=== PATIENT | female | born 2000 | race Caucasian/White ===

== ENCOUNTER 2022-07-05 19:37 | Inpatient (IN) | payer MEDICAID ==
[~2022-07-05] VITALS: Ht 160 cm; Wt 62.8 kg
[2022-07-05 20:36] LABS: BASOPHILS % (AUTO) 0.2 % (0-1); EOSINOPHILS % (AUTO) 0 % (0-6); HEMATOCRIT 44.4 % (35.0-45.0); HEMOGLOBIN 14.9 g/dl (12.0-16.0); LYMPHOCYTES # (AUTO) 0.4 X10'3 (1.1-4.8); LYMPHOCYTES % (AUTO) 4.4 % (21-51); MEAN CORPUSCULAR HEMOGLOBIN 28.7 PG (27.0-31.0); MEAN CORPUSCULAR HGB CONC 33.6 g/dL (33.0-36.5); MEAN CORPUSCULAR VOLUME 85.3 FL (78-98); MEAN PLATELET VOLUME 8.9 FL (7.4-10.4); MONOCYTES % (AUTO) 10.2 % (2-12); NEUTROPHILS # (AUTO) 8.5 X10'3 (1.8-7.7); NEUTROPHILS % (AUTO) 85.2 % (42-75); PLATELET COUNT 285 X10'3 (140-440); RED BLOOD COUNT 5.21 X10'6 (4.20-5.60); RED CELL DISTRIBUTION WIDTH 14.2 % (11.5-14.5)
[2022-07-05 20:45] LABS: ALBUMIN 4.2 G/DL (3.4-5.0); ALKALINE PHOSPHATASE 85 IU/L (46-116); AMYLASE 25 U/L (25-115); ANION GAP 11 (8-16); BILIRUBIN,TOTAL 5.8 MG/DL (0.1-1.0); BLOOD UREA NITROGEN 10 MG/DL (7-18); BUN/CREATININE RATIO 14.5 (6.6-38.0); CALCIUM 8.7 MG/DL (8.5-10.1); CHLORIDE 100 MMOL/L (99-107); CREATININE 0.69 MG/DL (0.40-0.90); GLUCOSE 102 MG/DL (70-104); LIPASE 83 U/L (73-393); POTASSIUM 3.9 MMOL/L (3.5-5.1); SODIUM 136 MMOL/L (135-145); TOTAL CARBON DIOXIDE 25.4 MMOL/L (24-32); eGFR > 90 ML/MIN
[2022-07-05 20:46] LABS: GLUCOSE, URINE NEGATIVE (Neg); KETONES,URINE TRACE mg/dl (Neg); LEUKOCYTE ESTERASE ,URINE NEGATIVE (Neg); NITRITES, URINE NEGATIVE (Neg); OCCULT BLOOD,URINE MODERATE (Neg); PH,URINE 6.5 (4.8-8.0); PROTEIN,URINE 30 mg/dl (Neg); UROBILINOGEN,URINE >=8.0 E.U/dL (0.2-1.0)
[2022-07-05 20:48] LABS: URINE HCG NEGATIVE (NEG)
[2022-07-05 20:50] LABS: ALBUMIN/GLOBULIN RATIO 1.2 (1.1-1.5); TOTAL PROTEIN 7.8 G/DL (6.4-8.2)
[2022-07-05 20:58] LABS: CLARITY,URINE SLIGHTLY CLOUDY (Clear); COLOR,URINE AMBER (Yellow); UA COLLECTION TYPE CLN CATCH MIDSTREAM
[2022-07-05 21:01] LABS: ASPARTATE AMINO TRANSFERASE 2871 U/L (10-37)
[2022-07-05 21:01] LABS: BACTERIA,URINE 1+ /HPF (Neg); MUCUS STRANDS MODERATE /LPF (Neg); SQUAMOUS EPITHELIAL CELL,UR MODERATE /LPF (FEW); TRANSITIONAL EPI CELLS,URINE FEW /HPF; WBC,URINE 0-4 /HPF (0-4)
[2022-07-05 21:02] LABS: HYALINE CASTS 0-3 /LPF (NEGATIVE)
[2022-07-05 21:11] LABS: ALANINE AMINOTRANSFERASE 3899 U/L (12-78)
[2022-07-05] MEDS ORDERED: ondansetron/PF 4mg/2ml inj IV ONE (23:30)
[2022-07-05] MEDS ORDERED: normal saline 1000ML IV soln IVB ONE (23:30)
[2022-07-06] MEDS ORDERED: iohexol 350MG/ML 100ml bottle IV ONE (00:12)
[2022-07-06 00:20] LABS: ETHANOL < 0.010 GM/DL (0.0-0.010)
[2022-07-06 00:22] LABS: ACETAMINOPHEN < 2.0 UG/ML (10-30)
[2022-07-06] MEDS ORDERED: ondansetron/PF 4mg/2ml inj IV ONE (02:45)
[2022-07-06] MEDS ORDERED: normal saline 1000ML IV soln IVB ONE (02:45)
[2022-07-06] MEDS ORDERED: diphenhydrAMINE 25mg capsule PO PRN (03:55)
[2022-07-06] MEDS ORDERED: magnesium hydroxide 30ml (MOM) UD suspension PO PRN (03:55)
[2022-07-06] MEDS ORDERED: dextrose 5%-1/2 normal saline 1,000 ML IV SCH (03:55)
[2022-07-06] MEDS ORDERED: acetaminophen 325mg tablet PO PRN ×2 (03:55)
[2022-07-06] MEDS ORDERED: acetaminophen 650mg rectal suppository RC PRN (03:55)
[2022-07-06] MEDS ORDERED: bisacodyl 10mg suppository rectal RC PRN (03:55)
[2022-07-06] MEDS ORDERED: HYDROcodone/acetaminophen 5mg/325mg tablet PO PRN (03:55)
[2022-07-06] MEDS ORDERED: metoclopramide 5 mg/ml inj IV ONE (04:00)
[2022-07-06] MEDS ORDERED: morphine 2 MG/ML inj. syringe IV ONE (04:00)
[2022-07-06 04:38] LABS: URINE AMPHETAMINE SCREEN NEGATIVE (Neg); URINE BARBITUATE SCREEN NEGATIVE (Neg); URINE BENZODIAZEPINES SCREEN NEGATIVE (Neg); URINE CANNABINOID SCREEN NEGATIVE (Neg); URINE COCAINE SCREEN NEGATIVE (Neg); URINE METHADONE SCREEN NEGATIVE (Neg); URINE OPIATE SCREEN NEGATIVE (Neg); URINE PHENCYCLIDINE SCREEN NEGATIVE (Neg)
[2022-07-06] MEDS ORDERED: NO HOME MEDS (04:57)
[2022-07-06 06:13] LABS: APTT 34 SECONDS (22-32)
[2022-07-06 06:54] LABS: HIV ANTIBODY 1&2 RAPID NON-REACTIVE (Neg)
[2022-07-06 07:13] LABS: CREATINE KINASE 210 U/L (26-192); MAGNESIUM 1.9 MG/DL (1.5-2.4)
[2022-07-06 07:14] LABS: PHOSPHORUS 5.6 MG/DL (2.3-4.5)
[2022-07-06] MEDS: diphenhydrAMINE 50 mg/ml inj IV PRN ×2 (07:15→13:17)
[2022-07-06] MEDS: mag hydrox/Alum hydrox/simeth 30ml oral suspension PO PRN ×2 (07:15→17:19)
[2022-07-06 07:34] LABS: LACTATE DEHYDROGENASE 6545 U/L (81-234)
[2022-07-06] MEDS: docusate sod 100mg capsule PO SCH ×3 (08:00→20:00)
[2022-07-06] MEDS: pantoprazole 40MG/NS 100ML BAG 100 ML IV SCH (08:24)
[2022-07-06] MEDS: ondansetron/PF 4mg/2ml inj IV PRN ×2 (11:13→17:44)
[2022-07-06] MEDS ORDERED: normal saline 250ml IV soln 250 ML IV ONE (13:10)
[2022-07-06] MEDS: normal saline 1000ml 1,000 ML IV SCH ×2 (13:17→19:50)
[2022-07-06] MEDS: metoclopramide 5 mg/ml inj IV PRN ×2 (13:17→22:36)
[2022-07-06] MEDS: ondansetron 4mg rapidly disintigrating tab PO PRN (17:19)
[2022-07-06] MEDS ORDERED: levoFLOXACIN-Levaquin 500mg/D5 100 ML IV SCH (19:50)
[2022-07-06 20:36] LABS: % IRON SATURATION 36 % (11-46); IRON 84 UG/DL (49-151); TOTAL IRON BINDING CAPACITY 233 UG/DL (259-388)
[2022-07-06 20:39] LABS: ALBUMIN 3.6 G/DL (3.4-5.0); ALKALINE PHOSPHATASE 110 IU/L (46-116); ANION GAP 14 (8-16); BILIRUBIN,TOTAL 5.6 MG/DL (0.1-1.0); BLOOD UREA NITROGEN 19 MG/DL (7-18); BUN/CREATININE RATIO 9.3 (6.6-38.0); CALCIUM 8.5 MG/DL (8.5-10.1); CHLORIDE 106 MMOL/L (99-107); CREATININE 2.04 MG/DL (0.40-0.90); GLUCOSE 93 MG/DL (70-104); POTASSIUM 4.6 MMOL/L (3.5-5.1); SODIUM 140 MMOL/L (135-145); TOTAL CARBON DIOXIDE 20.1 MMOL/L (24-32); eGFR 30 ML/MIN
[2022-07-06] MEDS: ringers solution, lacted 1,000 ML IV SCH (20:40)
[2022-07-06] MEDS ORDERED: temazepam 15mg capsule PO PRN (21:00)
[2022-07-06 21:03] LABS: ALBUMIN/GLOBULIN RATIO 1.4 (1.1-1.5); TOTAL PROTEIN 6.2 G/DL (6.4-8.2)
[2022-07-06 21:15] LABS: ALANINE AMINOTRANSFERASE > 7000 U/L (12-78); ASPARTATE AMINO TRANSFERASE > 7000 U/L (10-37)
[2022-07-06] MEDS ORDERED: ACETYLCYSTEINE IV ONE ×5 (21:45→22:52)
[2022-07-06] MEDS ORDERED: WATER IV ONE ×5 (21:45→22:52)
[2022-07-06] MEDS ORDERED: DEXTROSE 5% IV ONE ×5 (21:45→22:52)
[2022-07-06 21:53] LABS: APTT 45 SECONDS (22-32)
[2022-07-06 22:00] VITALS: BP 116/55
[2022-07-06] MEDS: metroNIDAZOLE-Flagyl 500mg/NS 100 ML IV SCH (22:36)
[2022-07-06] MEDS: lactulose 20gm/30ml cup PO SCH (22:36)
[2022-07-06 22:40] LABS: CLARITY,URINE CLOUDY (Clear); COLOR,URINE YELLOW (Yellow); GLUCOSE, URINE NEGATIVE (Neg); KETONES,URINE TRACE mg/dl (Neg); LEUKOCYTE ESTERASE ,URINE NEGATIVE (Neg); NITRITES, URINE NEGATIVE (Neg); OCCULT BLOOD,URINE MODERATE (Neg); PROTEIN,URINE 100 mg/dl (Neg); UROBILINOGEN,URINE 0.2 E.U/dL (0.2-1.0)
[2022-07-06 22:46] LABS: UA COLLECTION TYPE OTHER
[2022-07-06] MEDS: morphine 2 MG/ML inj. syringe IV PRN (22:47)
[2022-07-06 22:48] LABS: AMORPHOUS URATES 4+; BACTERIA,URINE FEW /HPF (Neg); COARSE GRANULAR CAST 0-3 /LPF (NEGATIVE); SQUAMOUS EPITHELIAL CELL,UR FEW /LPF (FEW); WBC,URINE NONE SEEN /HPF (0-4)
[2022-07-06 23:00] VITALS: BP 108/63
[2022-07-07] VITALS (20 sets, daily range): BP systolic 94–170; BP diastolic 55–104
[2022-07-07] MEDS ORDERED: metroNIDAZOLE-Flagyl 500mg/NS 100 ML IV SCH
[2022-07-07] MEDS: ondansetron/PF 4mg/2ml inj IV PRN (00:18)
[2022-07-07] MEDS ORDERED: haloperidol lactate 5mg/ml inj IVH PRN (01:10)
[2022-07-07] MEDS ORDERED: haloperidol lactate 5mg/ml inj IM PRN (01:35)
[2022-07-07] MEDS ORDERED: ondansetron/PF 4mg/2ml inj IV PRN (01:35)
[2022-07-07] MEDS: diphenhydrAMINE 50 mg/ml inj IV SCH ×2 (02:00→08:02)
[2022-07-07] MEDS ORDERED: diphenhydrAMINE 50 mg/ml inj IV SCH (02:00)
[2022-07-07] MEDS: metroNIDAZOLE-Flagyl 500mg/NS 100 ML IV SCH ×3 (02:14→13:27)
[2022-07-07] MEDS: ringers solution, lacted 1,000 ML IV SCH ×2 (05:20→10:00)
[2022-07-07 05:51] LABS: BASOPHILS % (AUTO) 0.1 % (0-1); EOSINOPHILS # (AUTO) 0.1 X10'3 (0-0.9); EOSINOPHILS % (AUTO) 0.4 % (0-6); HEMATOCRIT 35.1 % (35.0-45.0); HEMOGLOBIN 11.6 g/dl (12.0-16.0); LYMPHOCYTES # (AUTO) 0.5 X10'3 (1.1-4.8); LYMPHOCYTES % (AUTO) 3.2 % (21-51); MEAN CORPUSCULAR HEMOGLOBIN 28.5 PG (27.0-31.0); MEAN CORPUSCULAR VOLUME 86.5 FL (78-98); MEAN PLATELET VOLUME 8.6 FL (7.4-10.4); MONOCYTES # (AUTO) 1.1 X10'3 (0-0.9); MONOCYTES % (AUTO) 7.9 % (2-12); NEUTROPHILS # (AUTO) 12.6 X10'3 (1.8-7.7); NEUTROPHILS % (AUTO) 88.4 % (42-75); PLATELET COUNT 191 X10'3 (140-440); RED BLOOD COUNT 4.06 X10'6 (4.20-5.60); RED CELL DISTRIBUTION WIDTH 14.6 % (11.5-14.5); WHITE BLOOD COUNT 14.2 X10'3 (4.5-11.0)
[2022-07-07 06:23] LABS: APTT 41 SECONDS (22-32)
[2022-07-07 06:25] LABS: ALBUMIN 2.9 G/DL (3.4-5.0); ALKALINE PHOSPHATASE 97 IU/L (46-116); ANION GAP 11 (8-16); BILIRUBIN,TOTAL 5.4 MG/DL (0.1-1.0); BLOOD UREA NITROGEN 23 MG/DL (7-18); BUN/CREATININE RATIO 9.8 (6.6-38.0); CALCIUM 8.2 MG/DL (8.5-10.1); CHLORIDE 106 MMOL/L (99-107); CREATININE 2.35 MG/DL (0.40-0.90); GLUCOSE 110 MG/DL (70-104); MAGNESIUM 2.2 MG/DL (1.5-2.4); POTASSIUM 4.3 MMOL/L (3.5-5.1); SODIUM 138 MMOL/L (135-145); TOTAL CARBON DIOXIDE 21.4 MMOL/L (24-32); eGFR 26 ML/MIN
[2022-07-07 06:34] LABS: ALBUMIN/GLOBULIN RATIO 1.1 (1.1-1.5); PHOSPHORUS 2.1 MG/DL (2.3-4.5); TOTAL PROTEIN 5.5 G/DL (6.4-8.2)
[2022-07-07 06:37] LABS: ALANINE AMINOTRANSFERASE > 7000 U/L (12-78); ASPARTATE AMINO TRANSFERASE 4779 U/L (10-37)
--- NOTE | 2022-07-07 06:49 | NUR ---
Paul Porter called with INR 5.8. Orders rec'd.
[2022-07-07] MEDS ORDERED: phytonadione 10 MG/1 ML amp PO ONE (06:50)
--- NOTE | 2022-07-07 07:17 | NUR ---
Patient in room ICU 2039. I have received report from Kiara RODRIGUEZ and had the opportunity to ask questions and assume patient care. Addendum: 07/07/22 at 0717 by Jocy Craft RN Amended: Links added.
[2022-07-07] MEDS ORDERED: prednisoLONE 15mg/5ml oral solution 5ml cup PO SCH (08:00)
[2022-07-07] MEDS ORDERED: rifaximin 550mg tablet PO SCH (08:00)
[2022-07-07] MEDS ORDERED: levoFLOXACIN-Levaquin 250mg/D5 50 ML IV SCH (08:00)
[2022-07-07] MEDS: docusate sod 100mg capsule PO SCH (08:00)
[2022-07-07] MEDS: lactulose 20gm/30ml cup PO SCH ×5 (08:02→15:47)
[2022-07-07] MEDS: pantoprazole 40MG/NS 100ML BAG 100 ML IV SCH (08:06)
--- NOTE | 2022-07-07 09:02 | NUR ---
earth science technical officer Yris called to state the MRA cannot happen here. Dr. Birmingham and supercharge repair supervisor aware. RN paged case management.
[2022-07-07] MEDS: morphine 2 MG/ML inj. syringe IV PRN (09:25)
[2022-07-07] MEDS: ondansetron 4mg rapidly disintigrating tab PO PRN (09:27)
--- NOTE | 2022-07-07 10:23 | NUR ---
ROUNDS NOTE: Case management to call [facility]. Continue current treatment.
[2022-07-07] MEDS ORDERED: lactulose 20gm/30ml cup PO SCH (11:35)
--- NOTE | 2022-07-07 12:23 | NUR ---
Corpak placed for administration of Lactulose as pt. is not able to swallow safely due to high ammonia level.
--- NOTE | 2022-07-07 12:26 | NUR ---
Dr. Honeycutt (GI) in to see pt. Lactulose frequency increased. Corpak placed to give Lactulose.
--- NOTE | 2022-07-07 12:34 | NUR ---
Germán called for update on vital signs.
--- NOTE | 2022-07-07 13:17 | NUR ---
Pt. projective vomited. Corpak out. Dr. Birmingham aware.
--- NOTE | 2022-07-07 13:35 | NUR ---
Pt. more lethargic than earlier in shift. Eyes closed, not responding to verbal stimuli but moves all extremities and withdraws to pain. VSS. 95% room air. Dr. Birmingham aware.
[2022-07-07] MEDS ORDERED: etomidate 2mg/ml inj. ONE (14:00)
[2022-07-07] MEDS ORDERED: rocuronium 10mg/ml inj IV ONE (14:00)
[2022-07-07 14:29] LABS: ALKALINE PHOSPHATASE 97 IU/L (46-116); BILIRUBIN,DIRECT 2.9 MG/DL (0-0.3); BILIRUBIN,TOTAL 5.2 MG/DL (0.1-1.0)
[2022-07-07 14:30] LABS: ALBUMIN/GLOBULIN RATIO 1.3 (1.1-1.5); TOTAL PROTEIN 5.3 G/DL (6.4-8.2)
[2022-07-07 14:42] LABS: ALANINE AMINOTRANSFERASE > 7000 U/L (12-78); ASPARTATE AMINO TRANSFERASE 4262 U/L (10-37)
--- NOTE | 2022-07-07 14:45 | NUR ---
CT head done.
--- NOTE | 2022-07-07 14:49 | NUR ---
Dr. Birmingham here to intubate pt. for transfer to [facility] [place]. Pt. very lethargic.
[2022-07-07] MEDS ORDERED: propofol 1000mg/100ml bottle 100 ML IV ONE (14:57)
[2022-07-07 15:30] LABS: ABG BASE EXCESS -1.7 mmol/L (-2.0-2.0); ABG HCO3 21.9 mmol/L (22.0-26.0); ABG OXYGEN SATURATION 99.1 % (94-97); ABG PCO2 (T) 33.2 mmHg (32.0-45.0); ABG PO2 (T) 246.3 mmHg (75.0-100.0); ALLEN'S TEST POSITIVE; FCOHb 0.3 % (0.0-3.9); FMetHb 0.3 % (0.0-1.5); FO2Hb 98.5 % (94-97); PATIENT TEMPERATURE 36.7; PEEP 5 cm H2O; RESPIRATORY RATE 16 b/min; TIDAL VOLUME 375 mL; TOTAL HEMOGLOBIN 12.8 G/dl (12.0-16.0)
[2022-07-07] MEDS ORDERED: propofol 1000mg/100ml bottle 100 ML IV SCH (15:40)
--- NOTE | 2022-07-07 16:24 | NUR ---
Required paperwork faxed [place] [facility] [place] Awaiting bed # and phone call back before contacting [facility] for flight details.
--- NOTE | 2022-07-07 17:22 | NUR ---
Attempted to call report to [facility] but was told another doctor needs an update from Dr. Birmingham before pt. can transfer. No report given.
--- NOTE | 2022-07-07 17:43 | NUR ---
Report called to Helen RODRIGUEZ at [facility].
--- NOTE | 2022-07-07 18:15 | NUR ---
[facility] crew requesting 3 bottles of Propofol for transport. Propofol provided.
[2022-07-08 13:44] LABS: GAMMA GLUTAMLY TRANSPEPTIDASE 62 IU/L (0-60)
[2022-07-08 13:44] LABS: ANTI-DSDNA ANTIBODIES 1 IU/mL (0-9); ANTINUCLEAR ANTIBODIES Negative (Negative)
[2022-07-08 13:44] LABS: HBSAG SCREEN Negative (Negative); HEP A AB, IGM Negative (Negative)
== END 2022-07-07 18:49 | disposition critical access hospital (66) | DRG 720 ==
LOC: ER 19:38 → ED HOLD 07-06 03:57 → ICU 2S 07-06 22:05 → CICU 2S 07-07 13:13
PROVIDERS: ADMIT Family Medicine; ATTEND Internal Medicine
PROC: BW211ZZ Computerized Tomography (CT Scan) of Abdomen and Pelvis using Low Osmolar Contrast (ICD-10-PCS; 2022-07-06)
PROC: 5A1935Z Respiratory Ventilation, Less than 24 Consecutive Hours (ICD-10-PCS; principal; 2022-07-07)
PROC: 0BH17EZ Insertion of Endotracheal Airway into Trachea, Via Natural or Artificial Opening (ICD-10-PCS; 2022-07-07)
DX: A41.9 Sepsis, unspecified organism (principal); K72.00 Acute and subacute hepatic failure without coma; R65.21 Severe sepsis with septic shock; N17.9 Acute kidney failure, unspecified; D68.9 Coagulation defect, unspecified; E87.2 Acidosis; Z20.822 Contact with and (suspected) exposure to COVID-19; E86.1 Hypovolemia; B17.9 Acute viral hepatitis, unspecified; R82.4 Acetonuria; R71.0 Precipitous drop in hematocrit
CPT/HCPCS: 36415; 36600; 70450; 71045; 74177; 76700; 80053; 80074; 80076; 80305; 80320; 80329; 81001; 81025; 82103; 82140; 82150; 82390; 82550; 82803; 82948; 82977; 83516; 83540; 83550; 83605; 83615; 83690; 83735; 83880; 84100; 84145; 84443; 84484; 85018; 85025; 85384; 85610; 85651; 85730; 86038; 86140; 86592; 86695; 86696; 86703; 87040; 87081; 87635; 94002; 94760; 96361; 96374; 99285; A6213; A6258; A6449; A9900; C1758; C9113; G0378; J0132; J1200; J1630; J1956; J2270; J2405; J2704; J2765; J3430; J3490; J7030; J7042; J7050; J7060; J7070; J7120; J7510; Q9967

== ENCOUNTER 2023-10-08 07:00 | Inpatient (IN) | payer MEDICAID ==
[~2023-10-08] VITALS: Ht 160 cm; Wt 67.2 kg
[~2023-10-08 07:00] MED LIST: NO HOME MEDS
[2023-10-08] MEDS ORDERED: magnesium hydroxide 30ml (MOM) UD suspension PO PRN (10:30)
[2023-10-08] MEDS ORDERED: mag hydrox/Alum hydrox/simeth 30ml oral suspension PO PRN (10:30)
[2023-10-08] MEDS ORDERED: loperamide 2mg capsule PO PRN (10:30)
[2023-10-08 10:45] VITALS: BP 119/80; PULSE 86; RESP 16; TEMP 98.4; O2SAT 97
[2023-10-08] MEDS ORDERED: VILA40TA PO (10:59)
[2023-10-08 19:31] VITALS: BP 111/59; PULSE 72; RESP 18; TEMP 97.9; O2SAT 98
[2023-10-08] MEDS ORDERED: traZODone 50mg tablet PO PRN (23:15)
[2023-10-09 08:00] VITALS: BP 103/63; PULSE 88; RESP 16; TEMP 98.2; O2SAT 98
[2023-10-09 08:10] LABS: BASOPHILS # (AUTO) 0.1 X10'3 (0-0.2); BASOPHILS % (AUTO) 0.9 % (0-1); EOSINOPHILS # (AUTO) 0.1 X10'3 (0-0.9); EOSINOPHILS % (AUTO) 1.6 % (0-6); HEMATOCRIT 35.7 % (35.0-45.0); HEMOGLOBIN 11.6 g/dl (12.0-16.0); LYMPHOCYTES # (AUTO) 2.1 X10'3 (1.1-4.8); LYMPHOCYTES % (AUTO) 30.8 % (21-51); MEAN CORPUSCULAR HEMOGLOBIN 25.9 PG (27.0-31.0); MEAN CORPUSCULAR HGB CONC 32.6 g/dL (33.0-36.5); MEAN CORPUSCULAR VOLUME 79.4 FL (78-98); MEAN PLATELET VOLUME 8.7 FL (7.4-10.4); MONOCYTES # (AUTO) 0.7 X10'3 (0-0.9); MONOCYTES % (AUTO) 10.6 % (2-12); NEUTROPHILS # (AUTO) 3.9 X10'3 (1.8-7.7); NEUTROPHILS % (AUTO) 56.1 % (42-75); PLATELET COUNT 315 X10'3 (140-440); RED BLOOD COUNT 4.49 X10'6 (4.20-5.60); RED CELL DISTRIBUTION WIDTH 15.9 % (11.5-14.5); WHITE BLOOD COUNT 6.9 X10'3 (4.5-11.0)
[2023-10-09 08:21] LABS: ALANINE AMINOTRANSFERASE 14 U/L (12-78); ALBUMIN 3.6 G/DL (3.4-5.0); ALBUMIN/GLOBULIN RATIO 0.9 (1.1-1.5); ALKALINE PHOSPHATASE 62 IU/L (46-116); ANION GAP 10 (8-16); ASPARTATE AMINO TRANSFERASE 21 U/L (10-37); BILIRUBIN,TOTAL 0.5 MG/DL (0.1-1.0); BLOOD UREA NITROGEN 11 MG/DL (7-18); BUN/CREATININE RATIO 18.3 (10.0-20.0); CALCIUM 9.3 MG/DL (8.5-10.1); CHLORIDE 103 MMOL/L (99-107); GLUCOSE 84 MG/DL (70-104); POTASSIUM 3.6 MMOL/L (3.5-5.1); SODIUM 138 MMOL/L (135-145); TOTAL CARBON DIOXIDE 24.9 MMOL/L (24-32); TOTAL PROTEIN 7.8 G/DL (6.4-8.2); eCRCL 120 ML/MIN; eGFR > 90 ML/MIN
[2023-10-09 08:28] LABS: CHOL/HDL RATIO 2.6 (0.00-4.99); CHOLESTEROL 153 MG/DL (0-200); HDL CHOLESTEROL 59 MG/DL (35-60); LDL CHOLESTEROL 81 MG/DL (50-100); TRIGLYCERIDES 35 MG/DL (20-135)
[2023-10-09 08:58] LABS: HEMOGLOBIN A1C 4.9 % (4.5-6.2)
[2023-10-09 19:40] VITALS: BP 117/62; PULSE 86; RESP 16; TEMP 97.6; O2SAT 99
[2023-10-10 08:00] VITALS: BP 104/59; PULSE 72; RESP 16; TEMP 97.8; O2SAT 97
[2023-10-10] MEDS ORDERED: VILA40TA PO (17:40)
[2023-10-10] MEDS ORDERED: TRAZ-251 PO (17:40)
== END 2023-10-10 18:40 | disposition home or self-care (01) | DRG 751 ==
LOC: ADULT MH 07:00
PROVIDERS: ADMIT Psychiatry & Neurology Psychiatry; ATTEND Psychiatry & Neurology Psychiatry
PROC: GZHZZZZ Group Psychotherapy (ICD-10-PCS; principal; 2023-10-09)
DX: F33.2 Major depressive disorder, recurrent severe without psychotic features (principal); R45.851 Suicidal ideations; T39.1X2A Poisoning by 4-Aminophenol derivatives, intentional self-harm, initial encounter; G47.00 Insomnia, unspecified; Z88.8 Allergy status to other drugs, medicaments and biological substances; Z79.899 Other long term (current) drug therapy
CPT/HCPCS: 36415; 80053; 80061; 83036; 85025; 87081